=== PATIENT | male | born 1970 | race Caucasian/White ===

== ENCOUNTER 2018-04-14 16:22 | Outpatient (CLI) | payer BC ==
[2018-04-14 16:51] LABS: #Eosinphils 0.1 thou/uL (0.0-0.7); #Monocytes 0.5 thou/uL (0.11-0.59); #Neutrophils 4.2 thou/uL (1.40-6.50); %Basophils 0.5 % (0.0-1.0); %Eosinophils 2.1 % (0.0-10.0); %Lymphocytes 28.7 % (21.0-51.0); %Monocytes 7.1 % (0.0-10.0); %Neutrophils 61.6 % (42.0-75.0); Hemoglobin 13.4 g/dL (14.0-18.0); Mean Corpuscular HGB CONC 34.3 g/dL (32.0-36.0); Mean Corpuscular Hemoglobin 33.1 pg (27.0-31.0); Mean Corpuscular Volume 96.4 fL (78.0-98.0); Mean Platelet Volume 6.6 fL (7.4-10.4); Platelet Count 248 thou/uL (130-400); RBC Distribution Width 12.1 % (11.5-14.5); Red Blood Cell (RBC) Count 4.04 mill/uL (4.70-6.10); White Blood Cell (WBC) Count 6.9 thou/uL (4.8-10.8)
[2018-04-14 17:13] LABS: Anion Gap 12 mmol/L (10-20); BUN (Urea Nitrogen) 19 mg/dL (8.9-20.6); Calc. Creatinine Clearance 0 mL/min (70-130); Calcium 9.4 mg/dL (7.8-10.44); Carbon Dioxide 27 mmol/L (22-29); Chloride 105 mmol/L (98-107); Estimated GFR-MDRD 79; Glucose 88 mg/dL (70-105); Potassium 4.1 mmol/L (3.5-5.1); Sodium 140 mmol/L (136-145)
--- NOTE | 2018-07-05 17:05 | EKG ---
Test Reason : Blood Pressure : / mmHG Vent. Rate : 072 BPM Atrial Rate : 072 BPM P-R Int : 140 ms QRS Dur : 102 ms QT Int : 390 ms P-R-T Axes : 059 -19 049 degrees QTc Int : 427 ms Normal sinus rhythm Normal ECG No previous ECGs available Confirmed by JOCELYN MANCUSO M.D. ([id number] on 07/05/2018 5:04:44 PM Referred By: IERO Confirmed By:JOCELYN MANCUSO M.D.
== END 2018-04-14 16:23 | disposition home or self-care (01) ==
LOC: LABBT 16:22
PROVIDERS: ATTEND Orthopaedic Surgery
DX: Z01.812 Encounter for preprocedural laboratory examination (principal); M75.102 Unspecified rotator cuff tear or rupture of left shoulder, not specified as traumatic
CPT/HCPCS: 80048; 85025; 93005; 93010

== ENCOUNTER 2018-04-16 05:46 | Day surgery (SDC) | payer BC ==
[2018-04-14 16:50] VITALS: BMI 27.3
[2018-04-16] MEDS ORDERED: CEFAZOLIN/Water 2 GM/20 ML SYRINGE ONE (06:31)
[2018-04-16] MEDS ORDERED: Midazolam HCl 2 mg/2 ml Vial ONE (07:03)
[2018-04-16] MEDS ORDERED: Fentanyl 100 MCG/2 ML VIAL ONE ×4 (07:03→10:37)
[2018-04-16] MEDS ORDERED: HYDROcodone/Acetaminophen 5/325 mg Tablet PO PRN ×2 (07:32)
[2018-04-16] MEDS ORDERED: Ketorolac Tromethamine 30 MG/ML VIAL IVP PRN (07:32)
[2018-04-16] MEDS ORDERED: traMADol HCl 50 MG TAB PO PRN ×2 (07:32)
[2018-04-16] MEDS ORDERED: Ondansetron HCl/PF 4 MG/2 ML Vial IVP PRN (07:32)
[2018-04-16] MEDS ORDERED: Promethazine HCl 25 MG/ML VIAL IM PRN (07:32)
[2018-04-16] MEDS ORDERED: Zolpidem Tartrate 5 MG TAB PO PRN (07:32)
[2018-04-16] MEDS ORDERED: Ropivacaine HCl/PF 1,100 MG in Sodium Chloride 0.9% 440 ML NERVE BLCK SCH (07:32)
[2018-04-16] MEDS ORDERED: Fentanyl 100 MCG/2 ML VIAL SLOW IVP PRN (07:33)
[2018-04-16] MEDS ORDERED: Vancomycin HCl 1.5 GM in Sodium Chloride 0.9% 250 ML 300 ML IVPB SCH (10:30)
[2018-04-16] MEDS ORDERED: Ketorolac Tromethamine 30 MG/ML VIAL ONE (11:35)
[2018-04-16] MEDS ORDERED: PROPOFOL 200 MG/20 ML VIAL ONE (11:35)
[2018-04-16] MEDS ORDERED: Dexamethasone 20 MG/5 ML VIAL ONE (11:35)
[2018-04-16] MEDS ORDERED: Ondansetron HCl/PF 4 MG/2 ML Vial ONE (11:35)
--- NOTE | 2018-04-16 12:03 | OP ---
DATE OF PROCEDURE: 04/16/2018 PREOPERATIVE DIAGNOSES: 1, Left shoulder impingement with large rotator cuff tear including supra and infraspinatus tendons. 2. Unstable biceps tendon secondary to disruption of the bicipital sling. POSTOPERATIVE DIAGNOSES: 1. Left shoulder impingement with large rotator cuff tear including supra and infraspinatus tendons. 2. Unstable biceps tendon secondary to disruption of the bicipital sling. PROCEDURE PERFORMED: Left shoulder open subacromial decompression followed by open rotator cuff repa ir, followed by open biceps tenodesis. SURGEON: Indra Allen M.D. CLIENT SERVICE AND CONSULTING MANAGER: Rafael Rendon PA-C. BLOOD LOSS: Less than 50. ANESTHESIA: The patient had general anesthetic, he also had a block. DISPOSITION: He did go to the recovery room in stable condition. COMPLICATIONS: There were no complications. IMPLANTS: We used 2 triple loaded titanium rotator cuff anchors followed by 2 Bio[employer]posite 4.75 Swiv eLocks. INDICATIONS: A 48-year-old who comes in complaining of pain and weakness in the arm that he has had for nearly 5 years. He was found to have a very large cuff tear with some muscle atrophy and at this time opted to have surgery. DESCRIPTION OF PROCEDURE: After all appropriate consent forms were explained and signed, he was take n to the operating room and at this time was given general anesthetic. Once the level of anesthesia was appropriate, he was placed in modified beach chair position with all bony prominences well-padded . The left shoulder and upper extremity was then prepped and draped in standard surgical fashion. I ncision was made with a 10 blade down through skin. Bovie was used to coagulate any brisk venous ble eding. At this time, we took full thickness deltoid off exposing the anterior acromion and placed a Bhaskar underneath the anterior acromion. Saw was used to remove and performed an anterior inferior acromioplasty. Rasp was used to smooth this off. This gave us access to our cuff. Bursa was remov ed. The large rotator cuff tear was noted. The entire edge of it was cut with a blade to give us a nice fresh edge. We then tagged our biceps tendon, cut it off the superior labrum and went ahead and opened up the bicipital sling and performed a biceps tenodesis in standard fashion using a Bio-Tenod esis screw. Again, the intra-articular portion of the biceps tendon was removed prior to screw fixat ion. Once the biceps had been taken care of we then got our greater tuberosity ready for reimplantat ion using a curet and the rongeur and at this time, we then placed 2 triple-loaded anchors right off the articular surface. These were then run through the cuff using a needle performing mattress sutur es. These were then tied and 1 arm of each pair was used and crossed for a double row repair. Two 4 .75 SwiveLocks were used for this and once a double repair been performed, we have a nice repair with no prominent knots. The entire cuff had been repaired. Good range of motion was found. We then th oroughly irrigated and dried. We then used multiple interrupted #1 Ethibonds through the acromion fo r a deltoid repair and we then over ran this with a Vicryl. 2-0 Vicryl and jessica were then used to close the skin. Bulky sterile dressing was applied. The patient was awakened and taken to the [facility] very room in stable condition. All counts were correct at the end of the case. He did receive preop erative IV antibiotics.
== END 2018-04-16 13:20 | disposition home or self-care (01) ==
LOC: SDC 05:46
PROVIDERS: ATTEND Orthopaedic Surgery
PROC: 0LS20ZZ Reposition Left Shoulder Tendon, Open Approach (ICD-10-PCS; principal; 2018-04-16)
PROC: 0LQ20ZZ Repair Left Shoulder Tendon, Open Approach (ICD-10-PCS; principal; 2018-04-16)
PROC: 0RNK0ZZ Release Left Shoulder Joint, Open Approach (ICD-10-PCS; principal; 2018-04-16)
DX: M75.102 Unspecified rotator cuff tear or rupture of left shoulder, not specified as traumatic (principal); M25.812 Other specified joint disorders, left shoulder
CPT/HCPCS: 96365; 96366; 96374; 96375; 96376; C1713; G8984-GP-CN; G8985-GP-CN; G8986-GP-CN; J1100; J1885; J2250; J2405; J2704; J3010; J3370; J7050

== ENCOUNTER 2022-06-17 08:14 | Outpatient (CLI) | payer OTHER | END 2022-06-17 08:15 | disposition home or self-care (01) | LOC: MRI 08:14 | PROVIDERS: ATTEND Orthopaedic Surgery | DX: S46.011A Strain of muscle(s) and tendon(s) of the rotator cuff of right shoulder, initial encounter (principal); S46.811A Strain of other muscles, fascia and tendons at shoulder and upper arm level, right arm, initial encounter; M19.011 Primary osteoarthritis, right shoulder ==

== ENCOUNTER 2022-08-08 08:56 | Outpatient (CLI) | payer OTHER ==
[2022-08-08 10:17] LABS: #Eosinphils 0.1 10x3/uL (0.0-0.5); #Monocytes 0.4 10x3/uL (0.0-1.1); #Neutrophils 2.2 10x3/uL (1.5-8.4); %Basophils 0.4 % (0.0-2.0); %Eosinophils 2.7 % (0.0-6.0); %Lymphocytes 42.3 % (18.0-47.0); %Monocytes 8.5 % (0.0-10.0); %Neutrophils 45.9 % (40.0-75.0); Hemoglobin 13.4 g/dL (13.5-17.5); Mean Corpuscular HGB CONC 33.8 g/dL (32.0-36.0); Mean Corpuscular Hemoglobin 32.1 pg (27.0-33.0); Mean Platelet Volume 9.2 fl (7.4-10.4); Platelet Count 260 10x3/uL (150-450); RBC Distribution Width 12.5 % (11.5-14.5); Red Blood Cell (RBC) Count 4.18 10x6/uL (4.32-5.72); White Blood Cell (WBC) Count 4.8 10x3/uL (3.5-10.5)
[2022-08-08 10:36] LABS: Anion Gap 13 mmol/L (10-20); BUN (Urea Nitrogen) 12 mg/dL (8.4-25.7); Calc. Creatinine Clearance 0 mL/min (70-130); Calcium 9.9 mg/dL (7.8-10.44); Carbon Dioxide 25 mmol/L (22-29); Chloride 105 mmol/L (98-107); Estimated GFR 106; Glucose 80 mg/dL (70-105); Potassium 4.1 mmol/L (3.5-5.1); Sodium 139 mmol/L (136-145)
== END 2022-08-08 08:57 | disposition home or self-care (01) ==
LOC: LABBT 08:56
PROVIDERS: ATTEND Orthopaedic Surgery
DX: Z01.818 Encounter for other preprocedural examination (principal); M75.101 Unspecified rotator cuff tear or rupture of right shoulder, not specified as traumatic
CPT/HCPCS: 71046; 80048; 85025; 93005; 93010